=== PATIENT | female | born 1990 | race Caucasian/White ===

== ENCOUNTER 2019-05-18 16:13 | Emergency (ER) | payer OTHER ==
[2019-05-18 17:58] VITALS: BP 107/61
--- NOTE | 2019-05-18 18:08 | UC ---
General HPI - HPI Summary HPI Summary: Here because her mom sent her here to be checked out. states yesterday she started with a fever Tmax 102 - cough, congestion, sore throat and bodyaches. Tolerating PO. No N/V/D. 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; reviewed - History of Current Complaint Chief Complaint: UCGeneralIllness Stated Complaint: COUGH,FEVER Time Seen by Provider: 05/18/19 17:56 Hx Last Menstrual Period: 05/11/29 Pain Intensity: 4 - Allergy/Home Medications Allergies/Adverse Reactions: Allergies Allergy/AdvReac Type Severity Reaction Status Date / Time No Known Allergies Allergy Verified 05/18/19 17:52 Home Medications: Home Medications Ibuprofen TAB* [Advil TAB*] 1 tab PO ONCE 05/18/19 [History Confirmed 05/18/19] Naproxen Sodium [Aleve] 1 tab PO ONCE 05/18/19 [History Confirmed 05/18/19] PMH/Surg Hx/FS Hx/Imm Hx Previously Healthy: Yes - Surgical History Surgical History: Yes Surgery Procedure, Year, and Place: Heart surgery 1991. shunt placed 1992 - Family History Family History: NON CONTRIBUTORY - Social History Alcohol Use: None Substance Use Type: None Smoking Status (MU): Never Smoked Tobacco Review of Systems All Other Systems Reviewed And Are Negative: Yes Constitutional: Positive: Fever, Chills ENT: Positive: Sore Throat, Sinus Congestion Respiratory: Positive: Cough Gastrointestinal: Positive: Negative Physical Exam Triage Information Reviewed: Yes Completion Of Physical Exam Limited Due To: Other - mildly ill appearing Vital Signs: Initial Vital Signs Temp 98.4 F 05/18/19 17:53 Pulse 82 05/18/19 17:53 Resp 16 05/18/19 17:53 BP 107/61 05/18/19 17:53 Pulse Ox 99 05/18/19 17:53 Vital Signs Reviewed: Yes Eyes: Positive: Conjunctiva Clear ENT: Positive: Pharyngeal erythema, Nasal congestion, Other - tm's b/l dull Neck: Positive: Supple, Enlarged Nodes @ - anterior cervical chain b/l Respiratory: Positive: Lungs clear, Normal breath sounds Cardiovascular: Positive: No Murmur, Other: - soft systolic murmur Abdomen Description: Positive: Soft Course/Dx - Course Course Of Treatment: This is a 28 yr old with fever and URI s/s Rapid flu: Positive A Nontoxic appearing Plan First dose of Tamiflu given this evening start in AM prescription as directed Rest fluids, tylenol and/or ibuprofen as needed for pain/fever If symptoms persist or worsen, recommend follow up with PCP or return to urgent care - Diagnoses Provider Diagnosis: Influenza A Discharge ED - Sign-Out/Discharge Documenting (check all that apply): Patient Departure All imaging exams completed and their final reports reviewed: No Studies - Discharge Plan Condition: Good Disposition: HOME Prescriptions: Oseltamivir CAP* [Tamiflu CAP*] 75 mg PO BID #9 cap Patient Education Materials: Influenza (ED) Forms: *Work Release Referrals: Reymundo Ann DO [Primary Care Provider] - Additional Instructions: First dose of Tamiflu given this evening start in AM prescription as directed Rest fluids, tylenol and/or ibuprofen as needed for pain/fever If symptoms persist or worsen, recommend follow up with PCP or return to urgent care - Billing Disposition and Condition Condition: GOOD Disposition: Home
[2019-05-18 18:09] LABS: Influenza A Molecular POSITIVE (Negative)
[2019-05-18] MEDS ORDERED: Oseltamivir CAP* 75 MG CAP PO ONE (18:19)
== END 2019-05-18 18:29 | disposition home or self-care (01) ==
LOC: UCCORT 16:13
DX: J10.1 Influenza due to other identified influenza virus with other respiratory manifestations (principal)
CPT/HCPCS: 99212; A9270-GY; G0463